=== PATIENT | female | born 1995 | race Caucasian/White ===

== ENCOUNTER 2017-12-07 03:41 | Inpatient (IN) ==
[2017-12-07] MEDS ORDERED: MAG-AL + SIM ORAL LIQUID 30ml PO PRN (04:30)
[2017-12-07] MEDS ORDERED: CALCIUM CARBONATE Chewable 500mg TABLET PO PRN (04:30)
[2017-12-07] MEDS ORDERED: LR 1,000 ML IV PRN (04:30)
[2017-12-07] MEDS ORDERED: ACETAMINOPHEN 500 MG TABLET PO PRN (04:30)
[2017-12-07] MEDS ORDERED: METHYLERGONOVINE 0.2 MG/ML INJECTION IM PRN (04:30)
[2017-12-07] MEDS ORDERED: LIDOCAINE 1% (10mg/ml) 2mL INJ PF SDV ID PRN (04:30)
[2017-12-07] MEDS ORDERED: CARBOPROST 250 MCG/ML INJECTION IM PRN (04:30)
[2017-12-07 05:03] VITALS: BMI 38.7
[2017-12-07] MEDS ORDERED: ONDANSETRON 4 MG/2 ML INJECTION IVP PRN ×2 (05:37→09:47)
[2017-12-07] MEDS ORDERED: ROPIVACAINE 1% 10MG/ML INJ 200 MG, SUFentanil 50 MCG in NS 100 ML EPI PRN (05:37)
[2017-12-07] MEDS ORDERED: NALOXONE 0.4 MG/ML INJECTION IVP PRN (05:37)
[2017-12-07] MEDS ORDERED: DiphenhydrAMINE 50 MG/ML INJECTION IVP PRN (05:37)
--- NOTE | 2017-12-07 05:37 | Anesthesia Preoperative Report ---
Anesthesia Epidural/Spinal Rec - Date and Time Date: 12/07/17 Preoperative Diagnosis: Procedure: Labor Epidural Plan: Epidural - Vital Signs Vital Signs: Temperature 97.7 F 12/07/17 04:49 Pulse Rate 74 12/07/17 04:49 Respiratory Rate 18 12/07/17 04:49 Blood Pressure 123/70 12/07/17 04:49 Pulse Oximetry 97 12/07/17 04:49 /Para: P:1 - Medictaions & Allergies Inpatient Medications: Current Medications Acetaminophen (Tylenol) 500 - 1,000 mg PO Q4H PRN PRN Reason: Pain Al Hydroxide/Mg Hydroxide (Maalox Plus) 30 ml PO Q3H PRN PRN Reason: Indigestion Calcium Carbonate (Tums) 500 - 1,000 mg PO Q2H PRN PRN Reason: Indigestion Carboprost Tromethamine (Hemabate) 250 mcg IM O PRN PRN Reason: .Downtime Lactated Ringer's (Lactated Ringers) 1,000 mls @ 999 mls/hr IV .Q1H1M PRN Last Admin: 12/07/17 05:21 Dose: 999 mls/hr Lidocaine HCl (Xylocaine-Mpf 1% Vial) 0.2 mg ID O PRN PRN Reason: IV Start Methylergonovine Maleate (Methergine) 0.2 mg IM O PRN Misoprostol (Cytotec) 800 mcg IA ONCE PRN Allergies/Adverse Reactions: Allergies Allergy/AdvReac Type Severity Reaction Status Date / Time latex Allergy Verified 12/07/17 04:29 Sulfa (Sulfonamide Allergy Verified 12/07/17 04:29 Antibiotics) - Home Medications Home Medications: Home Medications Medication Instructions Recorded Confirmed Type Metoclopramide HCl [Reglan] 10 mg PO QID PRN #30 tab 03/18/17 11/22/17 Rx Pantoprazole Tab [Protonix Tab] 1 tab PO ACB 03/18/17 11/22/17 History clindamycin phosphate 1 % topical 1 applicatio TOP BID PRN 05/20/17 11/22/17 History swab dimenhydrinate 50 mg tablet 50 mg PO Q8H PRN 05/20/17 11/22/17 History tab PO DAILY tab 05/20/17 11/22/17 History vitamin,calcium,vbbssxie-qmsa-flxin acid tablet pyridoxine (vitamin B6) 25 mg 25 mg PO TID tab 05/20/17 11/22/17 History tablet Synthroid 50 mcg tablet 50 mcg PO QAM #90 tab NS 05/25/17 11/22/17 Rx doxylamine succinate 25 mg tablet 25 mg PO HS PRN 07/21/17 11/22/17 History polyethylene glycol 3350 17 PO DAILY g 07/21/17 11/22/17 History gram/dose oral powder ondansetron 8 mg disintegrating 8 mg PO Q12H PRN 08/30/17 11/22/17 History tablet magnesium 200 mg tablet 200 mg PO DAILY 10/11/17 11/22/17 History - Medical History Cardiovascular: Reports: Valvular Heart Disease (HOLE IN HEART WHEN ) Gastrointestional: Reports: Nausea or Vomiting Present (hyperemesis during ) Renal/Endocrine: Reports: Thyroid Disease (thyroiditis) Other History: Reports: Now - Surgical History Cardiac Surgeries/Treatments: Reports: Other ( CARDIA SURGERY) GI Surgery/Treatments: Reports: Hernia Repair (bilateral as child) Reproductive Surgery/Treatment: DENIES: Section Anesthesia Reactions: None Hx Family Anesthesia Reaction: No History of Motion Sickness: No - Social History Smoking Status: Never smoker Second Hand Exposure: No Substance Use Type: does not use Alcohol Intake Frequency: does not drink - Pertinent Findings Lab Data: CBC and BMP 12/07/17 04:57 EKG Rhythm: Normal Sinus Rhythm - Physical Exam Respiratory Exam: lungs clear Cardiovascular Exam: regular rate and rhythm, no murmur - Airway Assessment Mallampati Score: II TMD: 3 Fingerbreadths Neck Extension: good Overall Assessment: no airway concerns - ASA ASA Score: 2 - Discussion Discussion: Discussed risks/options/alternatives of anesthesia and questions answered. Patient consents. Nursing pain assessment noted. Anesthesia Discussion: spouse Attestation Statement: Prior to the delivery of any anesthetic medication, I examined the patient, developed the plan, obtained the patient's consent and discussed the risk and benefits of the procedure with the patient/guardian.
[2017-12-07] MEDS ORDERED: METOCLOPRAMIDE 10mg/2ml INJECTION IVP PRN (07:11)
[2017-12-07] MEDS ORDERED: ONDANSETRON ODT 4 MG TABLET PO PRN (07:13)
[2017-12-07] MEDS ORDERED: RHOPHYLAC - PHARMACY CONSULT MC ONE (09:47)
[2017-12-07] MEDS ORDERED: HYDROCORTISONE 2.5% CREAM 30gm RECTALLY PRN (09:47)
[2017-12-07] MEDS ORDERED: DiphenhydrAMINE 25 MG CAPSULE PO PRN (09:47)
[2017-12-07] MEDS ORDERED: OXYTOCIN DRIP 30 UNIT/500 ML ML IV SCH (10:00)
--- NOTE | 2017-12-07 14:05 | Anesthesia Postoperative Note ---
- Date and Time Date: 12/07/17 Time: 14:04 - Status Patient Participated in Evaluation: Patient Participated in Person Vital Signs: Temperature 97.7 F 12/07/17 04:49 Pulse Rate 74 12/07/17 04:49 Respiratory Rate 18 12/07/17 04:49 Blood Pressure 123/70 12/07/17 04:49 Pulse Oximetry 97 12/07/17 04:49 Respiratory Function: Airway Patent, Regular Respirations Cardiovascular Function: Regular Pulse Mental Status: Alert and Oriented Pain Intensity: 0 Hydration: Taking PO Fluids Complications During Recover: None Apparent Post Anesthesia Care Notes: ambulatory without problems - Follow-Up Instructions Instructions: Per Surgeon
[2017-12-07] MEDS: IBUPROFEN 800 MG TABLET PO PRN ×2 (14:32→22:48)
[2017-12-07] MEDS: DOCUSATE CALCIUM 240 MG CAPSULE PO SCH (14:33)
--- NOTE | 2017-12-07 18:09 | Labor and Delivery Note ---
DATE OF DELIVERY 12/07/2017 NICOLE Soto is a 22-year-old 3, para 1 at 38 weeks 2 days gestational age who presented to Maternal/Child in spontaneous labor this morning. She received an epidural. Her membranes were ruptured artificially, returning clear fluids. She progressed steadily throughout labor and only had to push for a short period of time. She had a spontaneous vaginal delivery in the SAMEERA position of a viable male , Apgars 8/9, weight 3036 g, name "Bandar." Baby was vigorous at delivery so he was placed on mom's abdomen and the cord clamping was delayed for more than two minutes. She had a small second-degree laceration that was repaired. The placenta delivered spontaneously. Baby has a known cleft lip and palate. Mom and baby tolerated the delivery well. [facility]
[2017-12-08] MEDS ORDERED: MORPHINE SULFATE 4mg INJECTION IVP PRN (02:30)
[2017-12-08] MEDS ORDERED: LR 1,000 ML IV SCH (02:30)
[2017-12-08] MEDS ORDERED: NALBUPHINE 10 MG/ML INJECTION IVP PRN (02:35)
[2017-12-08] MEDS: LR 1,000 ML IV SCH ×4 (02:46→20:01)
--- NOTE | 2017-12-08 09:25 | Anesthesia Preoperative Report ---
Anesthesia Preoperative Record - Date and Time Date: 12/08/17 Preoperative Diagnosis: Possible Labor Proposed Procedure: PPTL NPO Since Date: 12/07/17 NPO Since Time: 22:00 Allergies/Adverse Reactions: Allergies Allergy/AdvReac Type Severity Reaction Status Date / Time latex Allergy Verified 12/07/17 04:29 Sulfa (Sulfonamide Allergy Verified 12/07/17 04:29 Antibiotics) - Vital Signs Vital Signs: Temperature 98.2 F 12/08/17 05:15 Pulse Rate 87 12/08/17 05:15 Respiratory Rate 18 12/08/17 05:15 Blood Pressure 114/72 12/08/17 05:15 Pulse Oximetry 97 12/08/17 05:15 Height and Weight: Height 1.63 m Weight 102.512 kg Body Mass Index 38.7 - Medications Inpatient Medications: Current Medications Acetaminophen (Tylenol) 500 - 1,000 mg PO Q4H PRN PRN Reason: Pain Hydrocodone Bitart/Acetaminophen (Amana 5/325) 1 - 2 tab PO Q4H PRN PRN Reason: Pain Al Hydroxide/Mg Hydroxide (Maalox Plus) 30 ml PO Q3H PRN PRN Reason: Indigestion Calcium Carbonate (Tums) 500 - 1,000 mg PO Q2H PRN PRN Reason: Indigestion Carboprost Tromethamine (Hemabate) 250 mcg IM O PRN PRN Reason: .Downtime Diphenhydramine HCl (Benadryl) 25 - 50 mg IVP Q3H PRN PRN Reason: Itching Diphenhydramine HCl (Benadryl) 25 - 50 mg PO Q6H PRN PRN Reason: Itching Docusate Calcium (Surfak) 240 mg PO DAILY [facility] Last Admin: 12/07/17 14:33 Dose: 240 mg Hydrocortisone (Anusol-Hc 2.5% Cream) 1 applic RECTALLY PRN PRN PRN Reason: Hemorrhoids Ropivacaine 200 mg/ Sufentanil Citrate 50 mcg/ Sodium Chloride 121 mls @ 0 mls/ hr EPI PRN PRN; As Directed PRN Reason: Protocol Lactated Ringer's (Lactated Ringers) 1,000 mls @ 125 mls/hr IV .Q8H EUNICE Last Infusion: 12/08/17 09:16 Dose: 0 mls/hr Ibuprofen (Motrin) 800 mg PO Q8H PRN PRN Reason: Pain Last Admin: 12/07/17 22:48 Dose: 800 mg Magnesium Hydroxide (Mom) 30 ml PO DAILY PRN PRN Reason: Constipation Methylergonovine Maleate (Methergine) 0.2 mg IM O PRN Metoclopramide HCl (Reglan) 10 mg IVP Q6H PRN Misoprostol (Cytotec) 800 mcg [place] ONCE PRN Nalbuphine HCl (Nubain) 5 - 10 mg IVP Q2HR PRN Naloxone HCl (Narcan) 0.1 mg IVP Q2M PRN PRN Reason: Respiratory distress Ondansetron HCl (Zofran) 4 mg IVP Q6H PRN PRN Reason: Nausea &/or vomiting Ondansetron HCl (Zofran Odt Tablet) 4 mg PO Q4H PRN PRN Reason: Nausea &/or vomiting Last Admin: 12/07/17 07:20 Dose: 4 mg Phenylephrine HCl (Anusol Supp) 1 supp VA PRN PRN Home Medications: Home Medications Medication Instructions Recorded Confirmed Type Metoclopramide HCl [Reglan] 10 mg PO QID PRN #30 tab 03/18/17 12/07/17 Rx Pantoprazole Tab [Protonix Tab] 1 tab PO ACB 03/18/17 12/07/17 History clindamycin phosphate 1 % topical 1 applicatio TOP BID PRN 05/20/17 11/22/17 History swab dimenhydrinate 50 mg tablet 50 mg PO Q8H PRN 05/20/17 11/22/17 History 1 tab PO DAILY tab 05/20/17 11/22/17 History vitamin,calcium,syownsye-qhoy-doead acid tablet pyridoxine (vitamin B6) 25 mg 25 mg PO TID tab 05/20/17 12/07/17 History tablet Synthroid 50 mcg tablet 50 mcg PO QAM #90 tab NS 05/25/17 12/07/17 Rx doxylamine succinate 25 mg tablet 25 mg PO HS PRN 07/21/17 11/22/17 History polyethylene glycol 3350 17 17 gm PO DAILY g 07/21/17 11/22/17 History gram/dose oral powder ondansetron 8 mg disintegrating 8 mg PO Q12H PRN 08/30/17 12/07/17 History tablet Is Patient on Beta Owen?: No - Medical History Cardiovascular: Reports: Valvular Heart Disease (HOLE IN HEART WHEN ) Gastrointestional: Reports: Nausea or Vomiting Present (hyperemesis during ) Renal/Endocrine: Reports: Thyroid Disease (thyroiditis) Other History: Reports: Now - Surgical History Cardiac Surgeries/Treatments: Reports: Other (INFANT CARDIA SURGERY) GI Surgery/Treatments: Reports: Hernia Repair (bilateral as child) Reproductive Surgery/Treatment: DENIES: Section Anesthesia Reactions: None Hx Family Anesthesia Reaction: No History of Motion Sickness: No - Social History Smoking Status: Never smoker Second Hand Exposure: No Substance Use Type: does not use Alcohol Intake Frequency: does not drink - Pertinent Findings Laboratory: CBC and BMP 12/07/17 04:57 EKG: Sinus Rhythm - Physical Exam Respiratory Exam: Present: lungs clear Cardiovascular Exam: Present: regular rate and rhythm, no murmur - Airway Assessment Mallampati Score: II TMD: 3 Fingerbreadths Neck Extension: good Overall Assessment: no airway concerns - ASA ASA Score: 2 - Discussion Discussion: Discussed risks/options/alternatives of anesthesia and questions answered. Patient consents. Nursing pain assessment noted. Present for Discussion: spouse Attestation Statement: Prior to the delivery of any anesthetic medication, I examined the patient, developed the plan, obtained the patient's consent and discussed the risk and benefits of the procedure with the patient/guardian. - Additional Information Seen by Anesthesia: Yes
--- NOTE | 2017-12-08 09:25 | OB/GYN Progress Note ---
OB-PP Progress Note - General PPD1 Maternal Group B Strep: Negative General: Baby Rh neg - Subjective Date: 12/08/17 Lochia: Minimal Pain: controlled Voiding: voiding Subjective Comments: She desires a PPTL. She is completely sure she is finished having babies. - Objective Vital Signs: Last Vital Signs Temp 98.2 F 12/08/17 05:15 Pulse 87 12/08/17 05:15 Resp 18 12/08/17 05:15 BP 114/72 12/08/17 05:15 Pulse Ox 97 12/08/17 05:15 General: alert and oriented Abdomen: fundus firm, non-tender Extremities: non-tender Laboratory: Laboratory Results - last 24 hr 12/07/17 09:48 RhIG Candidate? Not a candidate Pertinent Findings: She has an infraumbilical scar that she reports was from a hernia repair as a baby. She doesn't know if they used mesh. - Assessment Assessment: Comments: Desires sterilization. - Plan Plan: routine care PPTL- Last evening we reviewed that this is a permanent procedure, but there is a risk of failure and ectopic. Questions answered.
[2017-12-08] MEDS ORDERED: BUPIVACAINE 0.25% (2.5mg/ml) PF 30ml INJECTION ONE (09:28)
[2017-12-08] MEDS ORDERED: PROPOFOL 500 MG/50 ML VIAL ONE ×2 (09:35→09:45)
[2017-12-08] MEDS ORDERED: BUPIVACAINE 0.75%/DEXTROSE 8.5% SPINAL 2 ML AMPULE IJ ONE (09:42)
[2017-12-08] MEDS ORDERED: LIDOCAINE 1% (10mg/ml) 30ml SDV INJ ONE (09:43)
[2017-12-08] MEDS ORDERED: FentaNYL 250 MCG/5 ML INJECTION ONE (10:08)
[2017-12-08] MEDS ORDERED: BUPIVACAINE 0.25% (2.5mg/ml) PF 30ml INJECTION ID ONE (10:29)
--- NOTE | 2017-12-08 10:41 | OB/GYN Procedure Note ---
EVENT DESIGNER Operative Note Date of Operation: 12/08/17 Preoperative Diagnosis: Sterilization Comments: s/p Postoperative Diagnosis: Same as Preoperative EVENT DESIGNER Procedure: Tubal Ligation ( via modified Mai) Surgeon: Bernie Kulkarni MD Anesthesia Provider: Samuel Blake CRNA Anesthesia Type: Spinal Complications: None Estimated Blood Loss:: 10
--- NOTE | 2017-12-08 10:50 | Anesthesia Postoperative Note ---
- Date and Time Date: 12/08/17 Time: 10:50 - Status Patient Participated in Evaluation: Patient Participated in Person Vital Signs: Temperature 98.0 F 12/08/17 09:32 Pulse Rate 91 12/08/17 09:32 Respiratory Rate 15 12/08/17 09:32 Blood Pressure 130/73 12/08/17 09:32 Pulse Oximetry 96 12/08/17 09:32 Respiratory Function: Airway Patent Cardiovascular Function: Regular Pulse EKG: Sinus Rhythm Mental Status: Alert and Oriented Pain Intensity: 0 Hydration: Taking PO Fluids Complications During Recover: None Apparent - Follow-Up Instructions Instructions: Per Surgeon
[2017-12-08] MEDS: HYDROCODONE/APAP 5mg/325mg TABLET PO PRN ×4 (11:11→23:19)
[2017-12-08] MEDS: IBUPROFEN 800 MG TABLET PO PRN ×2 (13:38→21:14)
[2017-12-08] MEDS: DOCUSATE CALCIUM 240 MG CAPSULE PO SCH ×2 (14:50→20:10)
--- NOTE | 2017-12-08 15:05 | Operative Note ---
DATE 12/08/2017 PREOPERATIVE DIAGNOSES 1. Desires permanent sterilization. 2. Status post spontaneous vaginal delivery. POSTOPERATIVE DIAGNOSES 1. Desires permanent sterilization. 2. Status post spontaneous vaginal delivery. PROCEDURE tubal ligation via modified Mai method. SURGEON Dr. Bernie Kulkarni ANESTHESIA Spinal with TIVA by Samuel Blake CRNA. COMPLICATIONS None. EBL 10 mL FINDINGS Fundus firm below the level of the umbilicus. Normal-appearing fallopian tubes. DESCRIPTION OF PROCEDURE The patient was taken to the operating room where anesthesia was obtained. She was placed in the supine position. Her bladder was drained. She was prepared and draped in the normal sterile fashion. The infraumbilical skin was injected with Marcaine. She had a previous infraumbilical incision from a previous hernia repair. The two ends of this incision were grasped with Allis forceps and lifted. A new incision was created through the old scar with the scalpel and the subcutaneous tissue was opened bluntly with a Miroslava. The tissue was dissected with a combination of blunt and sharp dissection. The fascia was grasped and elevated. It was entered sharply with the scissors. We entered the peritoneal cavity during this process. There were no adhesions inside the abdominal wall, so the incision was extended. The patient was tilted to her left. The bowels were packed away with a moist sponge attached to a Miroslava. Abdominal wall retractors were used to locate the right fallopian tube. It was grasped with an Allis and carried out to the fimbria. An avascular segment of the tube was ligated with chromic. Each end of the tube segment was also ligated with chromic. The tube segment was excised with good hemostasis noted. The remaining tube was injected with local. It was allowed to fall freely back into the patient's abdomen. All instruments were removed. She was tilted to her right and this was all repeated on her left fallopian tube. She had less mesosalpinx on the left, so there was a little less room to work with on this side. The tube segment that was excised was a little bit smaller. Good hemostasis was also noted and the remaining tube was injected with local. The remaining tube was allowed to fall freely back into the abdomen. The patient was flattened out. All instruments were removed. The fascia was closed with running 0 Vicryl. Hemostasis was obtained in the subcutaneous tissue with the cautery. The skin was closed with 4-0 Vicryl in a subcuticular manner. Dermabond was placed. Sponge and sharp counts were correct. The patient tolerated the procedure well and was taken to the recovery room in good condition. DIEGO
[2017-12-08] MEDS ORDERED: Oxycodone *IR* 5 MG TABLET PO PRN (15:34)
[2017-12-09] MEDS: HYDROCODONE/APAP 5mg/325mg TABLET PO PRN ×2 (06:24→10:24)
[2017-12-09] MEDS: IBUPROFEN 800 MG TABLET PO PRN (06:25)
--- NOTE | 2017-12-09 08:16 | OB/GYN Progress Note ---
OB-PP Progress Note - General PPD2 Maternal Group B Strep: Negative - Subjective Date: 12/09/17 Lochia: Minimal Pain: controlled Voiding: voiding - Objective Vital Signs: Last Vital Signs Temp 98.1 F 12/09/17 06:18 Pulse 81 12/09/17 06:18 Resp 16 12/09/17 06:18 BP 127/84 12/09/17 06:18 Pulse Ox 96 12/09/17 06:18 General: alert and oriented Abdomen: fundus firm, non-tender Incision: normal, clean, intact Extremities: non-tender - Assessment Assessment: , Tubal Ligation - Plan Plan: routine care, discharge home, continue PNV
[2017-12-09] MEDS: DOCUSATE CALCIUM 240 MG CAPSULE PO SCH (09:12)
[2017-12-09 10:37] VITALS: BP 114/74; PULSE 89; RESP 14; TEMP 97.6; O2SAT 95
== END 2017-12-09 10:56 | disposition home or self-care (01) | DRG 767 ==
LOC: OBOBS 03:41 → MC 03:43
PROVIDERS: ADMIT Obstetrics & Gynecology; ATTEND Obstetrics & Gynecology